=== PATIENT | male | born 1980 | race Caucasian/White ===

== ENCOUNTER 2017-05-12 21:50 | Emergency (ER) | payer MEDICAID ==
[~2017-05-12] VITALS: Ht 167.6 cm; Wt 72.7 kg
[~2017-05-12 21:50] MED LIST: ACYC5CRE2 TP; IBUP-1051 PO; NAPR500T6 PO; VICODIN
[2017-05-12] MEDS ORDERED: acetaminophen 325mg tablet PO STA (22:58)
[2017-05-12] MEDS ORDERED: ketorolac trometh. 30mg/ml inj. IV ONE (23:00)
[2017-05-12] MEDS ORDERED: diphenhydrAMINE 25mg capsule PO ONE (23:00)
[2017-05-12] MEDS ORDERED: normal saline 1000ML IV soln IVB ONE (23:00)
[2017-05-12] MEDS ORDERED: cefTRIAXone 1g/NS 100ml IVPB 100 ML IV ONE (23:15)
[2017-05-12 23:49] LABS: BASOPHILS % (AUTO) 0.3 % (0-1); EOSINOPHILS # (AUTO) 0.3 X10'3 (0-0.9); EOSINOPHILS % (AUTO) 1.8 % (0-6); HEMATOCRIT 42.2 % (42.0-52.0); HEMOGLOBIN 14.5 g/dl (14.0-17.9); LYMPHOCYTES # (AUTO) 2.3 X10'3 (1.1-4.8); LYMPHOCYTES % (AUTO) 15.7 % (21-51); MEAN CORPUSCULAR HEMOGLOBIN 30.1 PG (27.0-31.0); MEAN CORPUSCULAR HGB CONC 34.2 % (33.0-36.5); MEAN CORPUSCULAR VOLUME 87.9 FL (78-98); MEAN PLATELET VOLUME 7.7 FL (7.4-10.4); MONOCYTES # (AUTO) 0.7 X10'3 (0-0.9); MONOCYTES % (AUTO) 5.1 % (2-12); NEUTROPHILS # (AUTO) 11.3 X10'3 (1.8-7.7); NEUTROPHILS % (AUTO) 77.1 % (42-75); PLATELET COUNT 286 X10'3 (140-440); RED CELL DISTRIBUTION WIDTH 13.2 % (11.5-14.5); WHITE BLOOD COUNT 14.7 X10'3 (4.5-11.0)
[2017-05-13 00:01] LABS: ALANINE AMINOTRANSFERASE 23 U/L (12-78); ALBUMIN/GLOBULIN RATIO 1.1 (1.1-1.5); ALKALINE PHOSPHATASE 58 IU/L (46-116); ANION GAP 8 (8-16); ASPARTATE AMINO TRANSFERASE 19 U/L (10-37); BILIRUBIN,TOTAL 0.3 MG/DL (0.1-1.0); BLOOD UREA NITROGEN 10 MG/DL (7-18); BUN/CREATININE RATIO 11.2 (5.4-32.0); CALCIUM 8.6 MG/DL (8.5-10.1); CHLORIDE 102 MMOL/L (99-107); CREATININE 0.89 MG/DL (0.60-1.10); GLUCOSE 87 MG/DL (70-104); POTASSIUM 3.6 MMOL/L (3.5-5.1); SODIUM 137 MMOL/L (135-145); TOTAL CARBON DIOXIDE 26.6 MMOL/L (24-32); TOTAL PROTEIN 7.8 G/DL (6.4-8.2); eGFR > 90 ML/MIN
[2017-05-13] MEDS ORDERED: CEPH-572 PO (00:50)
[2017-05-13] MEDS ORDERED: SULF1TAB49 PO (00:50)
[2017-05-13 01:10] VITALS: BP 129/77
== END 2017-05-13 01:12 | disposition home or self-care (01) ==
LOC: ER 21:51
DX: I89.1 Lymphangitis (principal); L03.113 Cellulitis of right upper limb; F12.10 Cannabis abuse, uncomplicated
CPT/HCPCS: 36415; 80053; 83605; 84145; 85025; 87040; 87070; 87077; 87186; 96365; 99284; A6449; J0696; J1885; J7030; Q0163

== ENCOUNTER 2019-11-01 14:52 | Emergency (ER) | payer MEDICAID, SELFPAY ==
[~2019-11-01] VITALS: Ht 175.3 cm; Wt 6.6 kg
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
[2019-11-01] MEDS ORDERED: acetaminophen 325mg tablet PO ONE (19:00)
--- NOTE | 2019-11-01 20:51 | NUR ---
Pt sleeping peacfully. Respirations even and unlabored.
--- NOTE | 2019-11-02 | NUR ---
Pt continues to sleep peacefully, changing positions occasionally
[2019-11-02 04:19] VITALS: BP 124/81
[2019-11-02] MEDS ORDERED: HYDROcodone/acetaminophen 5mg/325mg tablet PO ONE (05:15)
== END 2019-11-02 05:52 | disposition short-term general hospital (02) ==
LOC: ER 14:52
DX: S02.32XA Fracture of orbital floor, left side, initial encounter for closed fracture (principal); S02.40FA Zygomatic fracture, left side, initial encounter for closed fracture; S02.40DA Maxillary fracture, left side, initial encounter for closed fracture; F17.200 Nicotine dependence, unspecified, uncomplicated; F12.90 Cannabis use, unspecified, uncomplicated; Z98.890 Other specified postprocedural states; Z79.899 Other long term (current) drug therapy; X58.XXXA Exposure to other specified factors, initial encounter; Y93.89 Activity, other specified; Y92.89 Other specified places as the place of occurrence of the external cause; Y99.8 Other external cause status
CPT/HCPCS: 70450; 70486; 87635; 99285; C9803